=== PATIENT | female | born 1995 | race Caucasian/White ===

== ENCOUNTER → 2020-10-18 15:19 | Outpatient (CLI) | payer BC | END | disposition home or self-care (01) | LOC: D.US 14:00 | PROVIDERS: ATTEND Nurse Practitioner | DX: N64.4 Mastodynia (principal) ==

== ENCOUNTER → 2020-11-20 11:16 | Outpatient (CLI) | payer BC | END | disposition home or self-care (01) | LOC: D.US 11:00 | PROVIDERS: ATTEND Obstetrics & Gynecology Maternal & Fetal Medicine | DX: N91.2 Amenorrhea, unspecified (principal) ==